=== PATIENT | male | born 1985 | race African-American/Black ===

== ENCOUNTER 2019-11-13 17:13 | Emergency (ER) | payer OTHER, SELFPAY ==
--- NOTE | 2019-11-13 17:21 | ED.MALEGU ---
HPI - Male Genitourinary General Chief complaint: Skin/Abscess/Foreign Body Stated complaint: possible uti Time Seen by Provider: 11/13/19 17:25 Source: patient and RN notes reviewed Mode of arrival: ambulatory Limitations: no limitations History of Present Illness HPI Narrative: 44-year-old male presents with concern for itching and burning on the shaft of his penis. Reports he states 2 to 3-week history of symptoms. He denies dysuria, frequency, urgency, hematuria, any lesions, sores. Denies known exposure to STDs. Reports he changed soaps prior to the rash starting. Denies any other area of rash. MD Complaint: other (Genital itching) Related Data Allergies Allergy/AdvReac Type Severity Reaction Status Date / Time No Known Allergies Allergy Unverified 11/05/17 11:03 Review of Systems Review of Systems: Narrative: CONSTITUTIONAL: Denies malaise, chills, sweats, or fever. RESPIRATORY: Denies cough or dyspnea. GASTROINTESTINAL: Denies abdominal pain, nausea, vomiting, diarrhea GENITOURINARY: Denies frequency, urgency, dysuria or hematuria. Denies abnormal penile discharge SKIN: Denies open sores, lesions. Reports itching, burning on the shaft of his penis MUSCULOSKELETAL: Denies myalgia. All systems reviewed & are unremarkable except as noted in HPI and below PMFSH Social History Social History Gender identity (if verbalized by the patient): Male Comments At time of signature, agree with nursing past medical, surgical, social and family history. There is no relevant family history pertinent to the presenting complaint Exam Narrative: Exam Narrative: GENERAL: Well-appearing, well-nourished, and in no acute distress. HEAD: Normocephalic. EYES: PERRLA, conjunctivae clear. NECK: Supple. No lymphadenopathy CHEST: Clear to auscultation. No respiratory distress. HEART: Regular rate and rhythm. No murmur heard. Normal peripheral pulses. SKIN: Warm, dry. Mild excoriation noted on the shaft of the penis without open lesions, open skin NEURO: Alert and oriented x3. PSYCH: Normal mood and affect Course Course Emergency Course: Patient is aware of diagnosis, understands and agrees to treatment plan. Anticipatory guidance given. Patient agrees to follow-up as directed and is aware of reasons to seek care at the emergency department. Portions of this record may have been created with voice recognition software Vital Signs Vital signs: Vital Signs Temperature 99.2 F 11/13/19 17:23 Pulse Rate 104 H 11/13/19 17:23 Respiratory Rate 16 11/13/19 17:23 Blood Pressure 135/89 11/13/19 17:23 Pulse Oximetry 99 11/13/19 17:23 Temperature 99.2 F 11/13/19 17:23 Pulse Rate 104 H 11/13/19 17:23 Respiratory Rate 16 11/13/19 17:23 Blood Pressure 135/89 11/13/19 17:23 Pulse Oximetry 99 11/13/19 17:23 Reviewed. MDM - Male Genitourinary MDM Narrative Medical decision making narrative: Exam findings show no acute concerns or changes; patient is non-toxic appearing and is in no distress. Patient is appropriate for outpatient treatment and follow-up. Differential Diagnosis Differential diagnosis: Likely urinary tract infection, urethritis and other (Contact dermatitis, sexually-transmitted infection) Critical Care Time Critical Care Time Critical Care Time: No Discharge Plan Discharge Clinical Impression: Itching of male genitalia Patient Disposition: Home, Self-Care Condition: Stable Instructions: Skin Yeast Infection (ED) Additional Instructions: Apply creams as prescribed. Continue to use gentle soap in the itchy area. Symptoms worsen or do not improve please follow-up with your primary care provider. Prescriptions: New nystatin 100,000 unit/gram cream 1 applic TOPICAL TID 7 Days Qty: 30 RF: 0 triamcinolone acetonide 0.1 % cream 1 applic TOPICAL BID 7 Days Qty: 80 RF: 0 Follow-up/Referrals: UNKNOWN,DOCTOR [Primary Care Provider] - Time of Disposition:
[2019-11-13 17:23] VITALS: BP 135/89; PULSE 104; RESP 16; TEMP 37.3; O2SAT 99
== END 2019-11-13 17:44 | disposition home or self-care (01) ==
PROVIDERS: Emergency Provider Nurse Practitioner
DX: N48.89 Other specified disorders of penis (principal)
CPT/HCPCS: 99213; G0463

== ENCOUNTER 2021-02-25 11:06 | Emergency (ER) | payer OTHER, SELFPAY ==
[2021-02-25 11:13] VITALS: BP 133/73; PULSE 70; RESP 16; TEMP 36.7; O2SAT 99
--- NOTE | 2021-02-25 11:35 | ED.DENTAL ---
HPI - Dental/Oral General Chief complaint: Dental/Oral Stated complaint: tooth ache Time Seen by Provider: 02/25/21 11:35 Source: patient Mode of arrival: ambulatory Limitations: no limitations History of Present Illness HPI Narrative: Orion Wong is a 36 yo male with no PMH who comes with R lower dental pain x1 week. Related Data Allergies Allergy/AdvReac Type Severity Reaction Status Date / Time No Known Allergies Allergy Unverified 11/05/17 11:03 Review of Systems Review of Systems: CONSTITUTIONAL: Denies fever, chills, sweats. EYES: Denies visual changes, redness, discharge. ENT: Denies rhinorrhea, congestion, sore throat, otalgia. CARDIOVASCULAR: Denies chest pain, palpitations, edema. RESPIRATORY: Denies dyspnea, wheezing, cough right lower dental pain GASTROINTESTINAL: Denies abdominal pain, nausea, vomiting, diarrhea. GENITOURINARY: Denies dysuria, hematuria, abnormal discharge SKIN: Denies rash or itching. NEUROLOGIC: Denies numbness, or focal weakness. PSYCHIATRIC: Denies anxiety or depression. PMFSH Past Medical History Medical History No acute medical problems Social History Social History (Updated 02/25/21 @ 11:37 by Marry Bello CNP) Smoking status: Never smoker Alcohol intake: current Gender identity (if verbalized by the patient): Male Comments At time of signature, I agree with nursing past medical, surgical, social and family history. There is no relevant family history pertinent to the presenting complaint. Exam Narrative: GENERAL: This is a well-nourished, well-developed patient, in mild distress. HEAD: normocephalic, atraumatic. EYES: Sclera clear/white. Vision is grossly intact. EARS: External ears normal, . Hearing grossly intact. NOSE: External nose normal without nasal discharge, nares without redness, no rhinorrhea. THROAT: Mucous membranes moist, posterior pharynx pink with right lower back molar that is cracked and swollen-dentition fair NECK: Neck supple, non-tender CARDIOVASCULAR: Regular rate and rhythm without murmurs, gallops, or rubs. RESPIRATORY: Clear to auscultation. Breath sounds equal bilaterally. No wheezes, rales, or rhonchi. GASTROINTESTINAL: Abdomen soft, SKIN: warm, intact with no suspicious lesions or rash, good texture and turgor. NEURO: awake, alert, and oriented to person, place and time. There were no obvious focal neurologic abnormalities. Steady gait EXTREMITIES: Normal range of motion. BACK: Nontender without deformity Course Course Emergency Course: Patient has right lower molar dental pain x1 to 2 weeks; states ibuprofen is not helping Level of Care: Express Care Visit Vital Signs Vital signs: Vital Signs Temperature 98.0 F 02/25/21 11:13 Pulse Rate 70 02/25/21 11:13 Respiratory Rate 16 02/25/21 11:13 Blood Pressure 133/73 02/25/21 11:13 Pulse Oximetry 99 02/25/21 11:13 Temperature 98.0 F 02/25/21 11:13 Pulse Rate 70 02/25/21 11:13 Respiratory Rate 16 02/25/21 11:13 Blood Pressure 133/73 02/25/21 11:13 Pulse Oximetry 99 02/25/21 11:13 MDM - Dental/Oral Differential Diagnosis Differential diagnosis: Likely gingival abscess, dental caries, toothache, dental abscess and fracture of tooth Discharge Plan Discharge Clinical Impression: Dental abscess Patient Disposition: Home, Self-Care Condition: Stable Instructions: Antibiotic Form, Dental Abscess (ED) Prescriptions: New penicillin V potassium 500 mg tablet 500 mg PO Q12H 10 Days Qty: 20 RF: 0 naproxen [Naprosyn] 500 mg tablet 500 mg PO BID PRN (Reason: pain) Qty: 20 RF: 0 acetaminophen-codeine 300-30 mg tablet 1 tablet PO Q6H PRN (Reason: pain) Qty: 30 RF: 0 Follow-up/Referrals: UNKNOWN,DOCTOR [Primary Care Provider] - Stand Alone Forms: Work/School Release IP
== END 2021-02-25 11:50 | disposition home or self-care (01) ==
PROVIDERS: Emergency Provider Nurse Practitioner
DX: K04.7 Periapical abscess without sinus (principal)
CPT/HCPCS: 99213; G0463

== ENCOUNTER 2021-04-11 11:21 | Emergency (ER) | payer OTHER, SELFPAY ==
[2021-04-11 11:29] VITALS: BP 121/79; PULSE 74; RESP 16; TEMP 37.1; O2SAT 99
--- NOTE | 2021-04-11 11:30 | ED.DENTAL ---
HPI - Dental/Oral General Chief complaint: Dental/Oral Stated complaint: Tooth Pain Time Seen by Provider: 04/11/21 11:30 Source: patient Mode of arrival: ambulatory Limitations: no limitations History of Present Illness HPI Narrative: 36-year-old male presents to the [facility] with complaints of right lower dental pain, has a fractured tooth that is been like that for several months. Reports being seen in February for the same. Reports unable to find a dentist to remove his tooth. Denies fevers. No trouble eating. MD Complaint: tooth pain (Right lower dental) Location: Tooth # Related Data Home Medications Medication Instructions Recorded Confirmed No Home Medications 04/11/21 04/11/21 Allergies Allergy/AdvReac Type Severity Reaction Status Date / Time No Known Allergies Allergy Unverified 11/05/17 11:03 Review of Systems Review of Systems: All systems reviewed & are unremarkable except as noted in HPI and below Constitutional: Constitutional: Reports no additional constitutional complaints, Denies chills and Denies fever(s) Eyes: Eyes: Reports no additional eye complaints ENT: Reports as per HPI Comments: Dental pain, right lower Cardiovascular: Cardiovascular: Reports no additional cardiovascular complaints, Denies chest pain and Denies dyspnea Respiratory: Respiratory: Reports no additional respiratory complaints, Denies cough and Denies dyspnea Musculoskeletal: Musculoskeletal: Reports no additional musculoskeletal complaints Integumentary/Breasts: Skin/Breast: Reports system reviewed and no additional complaints, except as docu Neurologic: Reports system reviewed and no additional complaints, except as documented Psychiatric: Psychiatric: Reports no additional psychiatric complaints Allergic/Immunologic: Allergic/Immunologic: Reports no additional allergic/immunologic complaints [facility] Past Medical History Medical History No acute medical problems Social History Social History Smoking status: Never smoker Alcohol intake: current Gender identity (if verbalized by the patient): Male Comments At the time of my signature, I reviewed and agree with the nursing past medical, surgical, social, and family history. There is no relevant family history pertinent to the patient complaint. Exam Const: General: healthy appearing, no acute distress and alert Nutritional Appearance: well nourished Orientation/consciousness: patient oriented x3 Limitations: no limitations HENMT: Head: normal to inspection Ears: external ears normal, TM's normal bilaterally and EAC's normal General nose exam: Normal external nose present and Normal nasal mucous membranes and turbinates present Face and sinus: normal facial exam Mouth: Yes Normal oral and palatal mucosa present Teeth and gingiva: abnormal tooth and associated gingiva lower right third molar tender, with associated gingival edema, with associated gingival fluctuance and enamel fractured and poor dentition Teeth image: 1. Swelling of the gingiva with abscess posterior to the tooth. Tooth is fractured, decayed Throat: posterior oropharynx normal, tonsils normal and uvula midline Eyes: Conjunctivae: conjunctivae normal Pupils: Equal, round and reactive pupils present Neck: Neck: normal visual inspection, no lymphadenopathy and no meningeal signs Chest: Chest palpation & inspection: normal inspection of the chest Resp: Effort & Inspection: normal respiratory effort Auscultation: clear to auscultation bilaterally Cardio: Rate: regular rate Rhythm: regular rhythm Skin: General skin exam: normal color Rashes: no rashes Wounds: no wounds Neuro: General: patient oriented x3, moves all extremities, no meningeal signs and no focal motor deficits Cranial nerves: Yes Equal, round and reactive pupils present Speech: normal speech Gait
[2021-04-11 11:40] VITALS: BP 121/79; PULSE 74; RESP 16; TEMP 37.1; O2SAT 99
== END 2021-04-11 11:48 | disposition home or self-care (01) ==
PROVIDERS: Emergency Provider Nurse Practitioner; PCP Physician Assistant
DX: K04.7 Periapical abscess without sinus (principal); K02.9 Dental caries, unspecified
CPT/HCPCS: 99213; G0463